=== PATIENT | male | born 1985 | race Caucasian/White ===

== ENCOUNTER 2020-07-04 09:22 | Emergency (ER) | payer BC ==
--- NOTE | 2020-07-04 09:58 | EDM.PDOC ---
ED HPI GENERAL MEDICAL PROBLEM - General Chief Complaint: Headache Stated Complaint: PAIN BEHIND EYES, LOSING CONCIOUSNESS, LOSS OF GERMAN Time Seen by Provider: 07/04/20 10:20 Source of Information: Reports: Patient, Family, RN, RN Notes Reviewed History Limitations: Reports: No Limitations - History of Present Illness INITIAL COMMENTS - FREE TEXT/NARRATIVE: Patient presents to the ED via personal vehicle with complaints of new onset headache. The patient reports he went to bed with a headache and feeling weak last night; he states he woke up at 0200 with a significantly worse headache, weakness, and nausea. He attest to vomiting "several times." He denies fever, shaking chills, diarrhea, melena, hematochezia, dysuria, or hematuria. The patient reports a medical history of DM I and states his BS this morning at 0200 was 221 with a recheck of 171 at about 0700; he did not take his long acting insulin as he has not eaten. He has taken Ibuprofen 400mg x1 dose for these symptoms. He denies tobacco, alcohol, or recreational drug use. Left Eye Pain Score (Numeric/FACES): 9 - Related Data Allergies Allergy/AdvReac Type Severity Reaction Status Date / Time codeine Allergy Tachycardia Verified 07/04/20 10:03 Home Meds: Home Meds Dextroamphetamine/Amphetamine [Adderall 10 mg Tablet] 10 mg PO BID 06/17/18 [History] Insulin Glarg,Human.Rec.Analog [Lantus] 17 unit SQ DAILY 06/17/18 [History] Insulin Lispro [HumaLOG] 15 unit SQ ASDIRECTED 06/17/18 [History] Past Medical History HEENT History: Reports: Hard of Hearing, Impaired Vision Gastrointestinal History: Reports: Cholelithiasis Genitourinary History: Reports: Diabetic Nephropathy Neurological History: Reports: Neuropathy, Diabetic Endocrine/Metabolic History: Reports: Diabetes, Type I - Past Surgical History GI Surgical History: Reports: Cholecystectomy Other GI Surgeries/Procedures: chronic pain ED ROS GENERAL - Review of Systems Review Of Systems: Comprehensive ROS is negative, except as noted in HPI. - Physical Exam Exam: See Below Exam Limited By: No Limitations General Appearance: Alert, WD/WN, Mild Distress Eye Exam: Bilateral Eye: EOMI, Normal Inspection, PERRL Throat/Mouth: Normal Inspection, Normal Voice, No Airway Compromise Head Exam: Atraumatic, Normocephalic Neck: Normal Inspection, Supple, Non-Tender, Full Range of Motion Respiratory/Chest: No Respiratory Distress, Lungs Clear, Normal Breath Sounds, No Accessory Muscle Use, Chest Non-Tender Cardiovascular: Normal Peripheral Pulses, Regular Rate, Rhythm, No Edema, No Gallop, No JVD, No Murmur, No Rub Neuro Exam (Abbreviated): Alert, Oriented, CN II-XII Intact, Normal Cognition, No Motor/Sensory Deficits Back Exam: Normal Inspection, Full Range of Motion Extremities: Normal Inspection, Normal Range of Motion, Non-Tender, No Pedal Edema, Normal Capillary Refill Psychiatric: Depressed Mood, Flat Affect Skin Exam: Warm, Dry, Intact, Normal Color, No Rash. No: Ecchymosis, Erythema, Mottled, Pallor, Petechiae #1 Interpretation EKG Date: 07/04/20 Time: 09:56 Rhythm: Other (Sinus Tach) Rate (Beats/Min): 100 Cunningham: Normal P-Wave: Present QRS: Normal ST-T: Normal QT: Prolonged ([place]line: 475) Comparison: NA - No Prior EKG (NSR; No evidence of acute ischemia.) Course - Vital Signs Last Recorded V/S: Last Vital Signs Temp 98.3 F 07/04/20 09:50 Pulse 96 07/04/20 09:50 Resp 16 07/04/20 09:50 BP 143/91 H 07/04/20 09:50 Pulse Ox 97 07/04/20 09:50 - Orders/Labs/Meds Orders: Active Orders 24 hr Category Date Time Status EKG 12 Lead [EKG Documentation Completion] [] STAT Care 07/04/20 10:05 Active POC Glucose [Blood Glucose Check, Bedside] [] ONETIME Care 07/04/20 10:24 A ctive Brain w wo Cont [MR] Urgent Exams 07/04/20 12:40 Ordered Labs: Laboratory Tests 07/04/20 07/04/20 07/04/20 Range/Units 10:05 10:05 10:05 WBC 13.2 H (5.0-10.0) 10^3/uL RBC 4.47 L (4.6-6.2) 10^6/uL Hgb 14.3 (14.0-18.0) g/dL Hct 41.0 (40.0-54.0) % MCV 91.7 (80-100) fL MCH 32.0 (27.0-34.0) pg MCHC 34.9 (33.0-35.0) g/dL Plt Count 308 (150-450) 10^3/uL Neut % (Auto) 79.2 H (42.2-75.2) % Lymph % (Auto) 12.6 L (20.5-50.1) % [place] % (Auto) 7.5 (2-8) % Eos % (Auto) 0.5 L (1.0-3.0) % Baso % (Auto) 0.2 (0.0-1.0) % Sodium 139 (136-145) mmol/L Potassium 3.8 (3.5-5.1) mmol/L Chloride 100 (98-107) mmol/L Carbon Dioxide 29 (21-32) mmol/L Anion Gap 13.8 H (7-13) mEq/L BUN 13 (7-18) mg/dL Creatinine 1.06 (0.70-1.30) mg/dL Est Cr Clr Drug Dosing 90.94 mL/min Estimated GFR (MDRD) > 60 BUN/Creatinine Ratio 12.3 (No establ ref range) Glucose 189 H (74-99) mg/dL Lactic Acid 0.9 (0.4-2.0) mmol/L Calcium 9.1 (8.5-10.1) mg/dL Phosphorus 3.2 (2.6-4.7) mg/dL Magnesium 1.7 L (1.8-2.4) mg/dL Total Bilirubin 0.5 (0.2-1.0) mg/dL AST 18 (15-37) U/L ALT 28 (16-63) U/L Alkaline Phosphatase 96 (46-116) U/L Total Protein 6.4 (6.4-8.2) g/dL Albumin 3.2 L (3.4-5.0) g/dL Globulin 3.2 Albumin/Globulin Ratio 1.00 Urine Color (YELLOW) Urine Appearance (CLEAR) Urine pH (5.0-9.0) Ur Specific [place] (1.005-1.030) Urine Protein (NEGATIVE) Urine Glucose (UA) (NEGATIVE) Urine Ketones (NEGATIVE) Urine Occult Blood (NEGATIVE) Urine Nitrite (NEGATIVE) Urine Bilirubin (NEGATIVE) Urine Urobilinogen (0.2-1.0) mg/dL Ur Leukocyte Esterase (NEGATIVE) Urine RBC /HPF Urine WBC (0-5/HPF) /HPF Ur Epithelial Cells (NOT SEEN) /HPF Amorphous Sediment (NOT SEEN) /HPF Urine Bacteria (0-FEW/HPF) /HPF Urine Mucus (NOT SEEN) /LPF Ketones Negative 07/04/20 Range/Units 12:00 WBC (5.0-10.0) 10^3/uL RBC (4.6-6.2) 10^6/uL Hgb (14.0-18.0) g/dL Hct (40.0-54.0) % MCV (80-100) fL MCH (27.0-34.0) pg MCHC (33.0-35.0) g/dL Plt Count (150-450) 10^3/uL Neut % (Auto) (42.2-75.2) % Lymph % (Auto) (20.5-50.1) % [place] % (Auto) (2-8) % Eos % (Auto) (1.0-3.0) % Baso % (Auto) (0.0-1.0) % Sodium (136-145) mmol/L Potassium (3.5-5.1) mmol/L Chloride (98-107) mmol/L Carbon Dioxide (21-32) mmol/L Anion Gap (7-13) mEq/L BUN (7-18) mg/dL Creatinine (0.70-1.30) mg/dL Est Cr Clr Drug Dosing mL/min Estimated GFR (MDRD) BUN/Creatinine Ratio (No establ ref range) Glucose (74-99) mg/dL Lactic Acid (0.4-2.0) mmol/L Calcium (8.5-10.1) mg/dL Phosphorus (2.6-4.7) mg/dL Magnesium (1.8-2.4) mg/dL Total Bilirubin (0.2-1.0) mg/dL AST (15-37) U/L ALT (16-63) U/L Alkaline Phosphatase (46-116) U/L Total Protein (6.4-8.2) g/dL Albumin (3.4-5.0) g/dL Globulin Albumin/Globulin Ratio Urine Color Yellow (YELLOW) Urine Appearance Turbid (CLEAR) Urine pH 8.0 (5.0-9.0) Ur Specific [place] 1.020 (1.005-1.030) Urine Protein 100 H (NEGATIVE) Urine Glucose (UA) 100 H (NEGATIVE) Urine Ketones Trace H (NEGATIVE) Urine Occult Blood Trace-intact H (NEGATIVE) Urine Nitrite Negative (NEGATIVE) Urine Bilirubin Negative (NEGATIVE) Urine Urobilinogen 0.2 (0.2-1.0) mg/dL Ur Leukocyte Esterase Negative (NEGATIVE) Urine RBC 0-5 /HPF Urine WBC 0-5 (0-5/HPF) /HPF Ur Epithelial Cells Rare (NOT SEEN) /HPF Amorphous Sediment Many (NOT SEEN) /HPF Urine Bacteria Rare (0-FEW/HPF) /HPF Urine Mucus Occasional (NOT SEEN) /LPF Ketones Meds: Medications Discontinued Medications Generic Name Dose Route Start Last Admin Trade Name Freq PRN Reason Stop Dose Admin Diphenhydramine HCl 25 mg 07/04/20 10:22 07/04/20 10:37 Benadryl IVPUSH 07/04/20 10:23 25 mg ONETIME ONE Administration Sodium Chloride 1,000 mls @ 999 mls/hr 07/04/20 10:24 07/04/20 10:37 Normal Saline IV 07/04/20 11:24 999 mls/hr .BOLUS ONE Administration Ketorolac Tromethamine 30 mg 07/04/20 10:23 07/04/20 11:07 Toradol IVPUSH 07/04/20 10:24 30 mg ONETIME ONE Administration - Re-Assessments/Exams Free Text/Narrative Re-Assessment/Exam: 07/04/20 Patient had minimal relief of pain to Toradol 30mg and Benadryl 25mg. IVF initiated. 07/04/20 UA and CMP unremarkable. CBC reveals elevation in WBC with a left shift. In consultation with Dr. Vicente from radiology will order MRI to r/o acute ocular involvement. Crosscutter discussed plan with patient; he verbalized understanding and agreement. 07/04/20 Patient refusing MRI after attempt to obtain images. He states he felt as if he "couldn't breathe." He denies wanting to attempt the MRI again with Ativan. He states he feels a lot better after the IV fluids and that his headache has mostly improved. He states he would like to be discharged and agrees to follow up with his primary care provider early next week or with worsening symptoms. Departure - Departure Time of Disposition: 13:34 Disposition: Home, Self-Care 01 Condition: Good Clinical Impression: Ocular pain, left eye Migraine Qualifiers: Migraine type: without aura Status migrainosus presence: without status migrainosus Intractability: not intractable Qualified Code(s): G43.009 - Migraine without aura, not intractable, without status migrainosus Leukocytosis Qualifiers: Leukocytosis type: bandemia Qualified Code(s): D72.825 - Bandemia - Discharge Information *PRESCRIPTION DRUG MONITORING PROGRAM REVIEWED*: Not Applicable *COPY OF PRESCRIPTION DRUG MONITORING REPORT IN PATIENT [place]: Not Applicable Instructions: Migraine Headache, [id number] Forms: ED Department Discharge Additional Instructions: Follow up with primary care provider regarding today's visit early next week. Return to the emergency department with any worsening of eye pain, loss of vision, fever, or shaking chills. Sepsis Event Note (ED) - Focused Exam Vital Signs: Vital Signs Temp Pulse Resp BP Pulse Ox 07/04/20 09:50 98.3 F 96 16 143/91 H 97 - My Orders Last 24 Hours: My Active Orders 07/04/20 10:05 EKG 12 Lead [EKG Documentation Completion] [RC] STAT 07/04/20 10:24 POC Glucose [Blood Glucose Check, Bedside] [RC] ONETIME 07/04/20 12:40 Brain w wo Cont [MR] Urgent - Assessment/Plan Last 24 Hours: My Active Orders 07/04/20 10:05 EKG 12 Lead [EKG Documentation Completion] [RC] STAT 07/04/20 10:24 POC Glucose [Blood Glucose Check, Bedside] [RC] ONETIME 07/04/20 12:40 Brain w wo Cont [MR] Urgent
[2020-07-04] MEDS ORDERED: diphenhydrAMINE 50 MG/ML SDV IVPUSH ONE (10:22)
[2020-07-04] MEDS ORDERED: Ketorolac 30 MG/ML SDV IVPUSH ONE (10:23)
[2020-07-04] MEDS ORDERED: Sodium Chloride 0.9% 1,000 ML IV ONE (10:24)
[2020-07-04 10:56] LABS: ANION GAP 13.8 mEq/L (7-13); CHLORIDE,CL 100 mmol/L (98-107); SODIUM,NA 139 mmol/L (136-145)
== END 2020-07-04 13:50 | disposition home or self-care (01) ==
LOC: DL.ED 09:22
DX: G43.009 Migraine without aura, not intractable, without status migrainosus (principal); D72.829 Elevated white blood cell count, unspecified; E10.40 Type 1 diabetes mellitus with diabetic neuropathy, unspecified; E10.21 Type 1 diabetes mellitus with diabetic nephropathy; Z88.5 Allergy status to narcotic agent; Z90.49 Acquired absence of other specified parts of digestive tract
CPT/HCPCS: 36415; 80053; 81001; 82009; 82962; 83605; 83735; 84100; 85025; 93005; 96374; 96375; 99285; J1200; J1885; J7030

== ENCOUNTER 2021-11-29 19:15 | Emergency (ER) | payer BC ==
[2021-11-29] MEDS ORDERED: Diphtheria,Pertussis(Acell),Tetanus Vaccine 0.5 ML Syringe IM ONE (21:17)
== END 2021-11-29 21:37 | disposition home or self-care (01) ==
LOC: DL.ED 19:15
DX: S61.211A Laceration without foreign body of left index finger without damage to nail, initial encounter (principal); I10 Essential (primary) hypertension; E10.21 Type 1 diabetes mellitus with diabetic nephropathy; Z23 Encounter for immunization; W26.0XXA Contact with knife, initial encounter
CPT/HCPCS: 12001; 90471; 90715; 99282-25; 99283

== ENCOUNTER 2024-10-29 13:24 | Emergency (ER) | payer SELFPAY ==
[2024-10-29] MEDS: Iopamidol 612 MG/ML 100 ML Bottle IVPUSH ONE (13:44)
[2024-10-29] MEDS ORDERED: Sodium Chloride 0.9% 10 ML Syringe FLUSH PRN (13:44)
[2024-10-29 14:22] LABS: PROTHROMBIN TIME 10.1 SEC (9.0-12.0); PTT,PARTIAL THROMBOPLSTIN TIME 26.8 SEC (22.0-34.0)
[2024-10-29] MEDS: fentaNYL 100 MCG/2 ML SDV IVPUSH ONE (14:22)
[2024-10-29 14:23] LABS: LIPASE 74 U/L (16-77)
[2024-10-29] MEDS: Sodium Chloride 0.9% 1,000 ML IV ONE (14:27)
[2024-10-29 14:28] LABS: LACTIC ACID 0.5 mmol/L (0.4-2.0)
[2024-10-29] MEDS: Lactated Ringers 1,000 ML IV ONE (14:28)
[2024-10-29 14:39] LABS: C-REACTIVE PROTEIN < 0.50 ng/dL (<=0.50)
== END 2024-10-29 16:15 | disposition home or self-care (01) ==
LOC: DL.ED 13:24
DX: K59.00 Constipation, unspecified (principal); I10 Essential (primary) hypertension; E10.40 Type 1 diabetes mellitus with diabetic neuropathy, unspecified; Z79.899 Other long term (current) drug therapy; Z79.4 Long term (current) use of insulin; Z88.5 Allergy status to narcotic agent
CPT/HCPCS: 36415; 74177; 83605; 83690; 85610; 85730; 86140; 96361; 96374; 99284; J3010; J7120; Q9967

== ENCOUNTER 2024-12-27 06:53 | Day surgery (SDC) | payer BC ==
[~2024-12-27 06:53] MED LIST: Midazolam 1 MG/ML 2 ML SDV IV ONE; Midazolam 1 MG/ML 2 ML SDV ONE; fentaNYL 100 MCG/2 ML SDV IV ONE; fentaNYL 100 MCG/2 ML SDV ONE
[2024-12-27] MEDS: Dextrose 5%-0.45% NaCl 1,000 ML IV SCH (07:00)
[2024-12-27] MEDS: fentaNYL 100 MCG/2 ML SDV IV ONE ×2 (08:21)
[2024-12-27] MEDS: Midazolam 1 MG/ML 2 ML SDV IV ONE ×3 (08:22→08:26)
== END 2024-12-27 10:00 | disposition home or self-care (01) ==
LOC: DL.ENDO 06:53
PROVIDERS: ATTEND Internal Medicine Gastroenterology
DX: K31.89 Other diseases of stomach and duodenum (principal); K29.80 Duodenitis without bleeding
CPT/HCPCS: 43239; J2250; J3010

== ENCOUNTER 2024-12-28 06:53 | Day surgery (SDC) | payer BC ==
[2024-12-28] MEDS: Dextrose 5%-0.45% NaCl 1,000 ML IV SCH (07:13)
[2024-12-28] MEDS ORDERED: Midazolam 1 MG/ML 2 ML SDV IV ONE (08:15)
[2024-12-28] MEDS ORDERED: fentaNYL 100 MCG/2 ML SDV IV ONE (08:15)
[2024-12-28] MEDS ORDERED: Midazolam 1 MG/ML 2 ML SDV ONE (08:15)
[2024-12-28] MEDS ORDERED: fentaNYL 100 MCG/2 ML SDV ONE (08:15)
[2024-12-28] MEDS: fentaNYL 100 MCG/2 ML SDV IV ONE ×6 (08:22→08:37)
[2024-12-28] MEDS: Midazolam 1 MG/ML 2 ML SDV IV ONE ×6 (08:23→08:33)
== END 2024-12-28 10:15 | disposition home or self-care (01) ==
LOC: DL.ENDO 06:53
PROVIDERS: ATTEND Internal Medicine Gastroenterology
DX: K62.1 Rectal polyp (principal); K63.5 Polyp of colon; E10.9 Type 1 diabetes mellitus without complications
CPT/HCPCS: 45385; J2250; J3010